=== PATIENT | female | born 1980 | race African-American/Black ===

== ENCOUNTER 2016-12-08 13:17 | Outpatient (CLI) | payer OTHER ==
--- NOTE | 2016-12-13 13:49 | Mammography Report ---
BILATERAL DIGITAL DIAGNOSTIC MAMMOGRAM with CAD and RIGHT BREAST ULTRASOUND: 12/08/16 13:30:00 CLINICAL: Right breast lump. COMPARISON:None. FINDINGS: The breasts are heterogeneously dense which may obscure small masses and the breasts are are sufficiently dense to limit the sensitivity of mammography.No mass, architectural distortion or suspicious calcifications . No mammographic finding at a right upper outer palpable marker. Ultrasound of the right breast was performed from 9 o'clock to 12 o'clock and in the area where she feels a lump at 10 o'clock. The ultrasound demonstrated normal fibroglandular structures. No mass, cyst or shadowing. IMPRESSION: Negative mammogram and negative right breast ultrasound. BI-RADS CATEGORY: 2 -- Benign RECOMMENDATION: Clinical follow-up of the palpable area and routine mammographic screening based on ACS guidelines. ACR BI-RADS MAMMOGRAPHIC CODES: 0 = Needs additional imaging evaluation; 1 = Negative; 2 = Benign; 3 = Probably benign; 4 = Suspicious; 5 = Malignant; 6 = Known biopsy-proven malignancy COMMENT: 1. Dense breast tissue, i.e., adenosis, fibrocystic changes, etc., may obscure an underlying neoplasm. 2. Approximately 10% of cancers are not detected with mammography. 3. A negative mammography report should not delay biopsy if a clinically suspicious mass is present. COMMENT: Patient follow-up letters are generated by our [employer] application.
--- NOTE | 2016-12-13 14:00 | Ultrasound Report ---
BILATERAL DIGITAL DIAGNOSTIC MAMMOGRAM with CAD and RIGHT BREAST ULTRASOUND: 12/08/16 13:30:00 CLINICAL: Right breast lump. COMPARISON:None. FINDINGS: The breasts are heterogeneously dense which may obscure small masses and the breasts are are sufficiently dense to limit the sensitivity of mammography.No mass, architectural distortion or suspicious calcifications . No mammographic finding at a right upper outer palpable marker. Ultrasound of the right breast was performed from 9 o'clock to 12 o'clock and in the area where she feels a lump at 10 o'clock. The ultrasound demonstrated normal fibroglandular structures. No mass, cyst or shadowing. IMPRESSION: Negative mammogram and negative right breast ultrasound. BI-RADS CATEGORY: 2 -- Benign RECOMMENDATION: Clinical follow-up of the palpable area and routine mammographic screening based on ACS guidelines.
== END 2016-12-08 13:18 | disposition home or self-care (01) ==
LOC: MAMMO 13:17
PROVIDERS: ATTEND Obstetrics & Gynecology
DX: N63 Unspecified lump in breast (principal)
CPT/HCPCS: 76642; G0204; 77066